=== PATIENT | male | born 1945 | race Asian ===

== ENCOUNTER → 2021-12-17 | Day surgery (SDC) | payer MEDICARE ==
[~2021-12-17] VITALS: Ht 170.2 cm; Wt 69.0 kg
[~2021-12-17] MED LIST: ALBU8HFA IH; ALBUTEROL SULFATE 2.5 MG/0.5 ML NEB SOLUTION NEB ONE; AMOX-420 PO; BENZOCAINE 20% 50 MCG/SPRAY 57 GM TP ONE; FAMO20 PO; FentaNYL CITRATE PF 100 MCG/2 ML VIAL ONE; LIDOCAINE 2% 11 ML JELLY TP ONE; LIDOCAINE 4% 50 ML SOLUTION TP ONE; MIDAZOLAM HCL 2 MG/2 ML VIAL ONE; MIDAZOLAM HCL 5 MG/ML VIAL ONE; MONT-35 PO; MethylPREDNISolone SOD SUCC 125 MG/2 ML VIAL IVP ONE; MethylPREDNISolone SOD SUCC 125 MG/2 ML VIAL ONE; NYST30OI6 TP; OXYGEN THERAPY IH SCH; PRED-729 PO; SODIUM CHLORIDE 0.9% 1,000 ML IV ONE; SODIUM CHLORIDE 0.9% 1,000 ML ONE
[2021-12-17 06:31] LABS: COVID AG,FIA SOURCE NASAL SWAB
== END | disposition home or self-care (01) ==
LOC: SURGERY 05:46
PROVIDERS: ATTEND Internal Medicine Critical Care Medicine
DX: R05.3 Chronic cough (principal); B37.0 Candidal stomatitis; Z20.822 Contact with and (suspected) exposure to COVID-19; Z79.899 Other long term (current) drug therapy
CPT/HCPCS: 31623; 88305; 88112; 87206; 87101; 87220; 87070; 88312; 31624; 71045; 71250; 87015; 87426; J3010; J2250; J2930; Q9967; J7030; C9803; J7613; Z7610